=== PATIENT | female | born 1980 | race Caucasian/White ===

== ENCOUNTER 2016-09-07 17:47 | Emergency (ER) | payer MEDICAID, OTHER, SELFPAY ==
[~2016-09-07] VITALS: Ht 152.4 cm; Wt 54.4 kg
[2016-09-07] MEDS ORDERED: KETOROLAC 30 MG/ML VIAL (J1885) IV ONE (19:45)
[2016-09-07] MEDS ORDERED: ONDANSETRON 4MG/2ML VIAL (J2405) IV ONE (19:45)
[2016-09-07] MEDS ORDERED: NS 1,000 ML IV ONE (20:00)
[2016-09-07 20:22] LABS: BASO % 0.7 % (0.0-1.0); EOS % 0.6 % (0.0-3.0); LARGE UNSTAINED CELL # 0.1 K/mm3 (0.0-0.4); LARGE UNSTAINED CELL % 2.5 % (0.0-4.0); LYMPH # 1.9 K/mm3 (1.5-4.5); LYMPH % 31.9 % (24.0-44.0); MEAN CORPUSCULAR HEMOGLOBIN 23.8 pg (27.0-33.0); MEAN CORPUSCULAR HGB CONC 31.4 g/dl (32.0-36.5); MEAN CORPUSCULAR VOLUME 75.6 fl (80.0-96.0); MONO # 0.4 K/mm3 (0.0-0.8); MONO % 6.6 % (0.0-5.0); NEUTROPHILS # 3.1 K/mm3 (1.8-7.7); NEUTROPHILS % 57.8 % (36.0-66.0); PLATELET COUNT, AUTOMATED 199 k/mm3 (150-450); RED CELL DISTRIBUTION WIDTH 15.3 % (11.5-14.5); WHITE BLOOD COUNT 5.4 K/mm3 (4.0-10.0)
[2016-09-07 20:24] LABS: ANION GAP 6 MEQ/L (8-16); BLOOD UREA NITROGEN 11 MG/DL (7-18); CALCIUM LEVEL 9.4 MG/DL (8.5-10.1); CARBON DIOXIDE LEVEL 28 MEQ/L (21-32); CHLORIDE LEVEL 106 MEQ/L (98-107); CREATININE FOR GFR 0.65 MG/DL (0.55-1.02); GLOMERULAR FILTRATION RATE > 60.0 (>60); GLUCOSE, FASTING 79 MG/DL (70-105); POTASSIUM SERUM 4.4 MEQ/L (3.5-5.1); SODIUM LEVEL 140 MEQ/L (136-145)
--- NOTE | 2016-09-07 20:50 | REPUSA ---
Clinical history: pain. Comparison: CT examination of 11/01/2015. Findings: The urinary bladder is contracted but appears unremarkable. The left kidney measures 10.5 x 3.6 x 4.0. The right kidney measures 10.1 x 4.7 x 4.4 cm. The kidneys demonstrate normal echotextur e and echogenicity. There is a complex, hypoechoic lesion in the mid-left kidney measuring 1.2 x 1.2 x 1.3 cm. There is no evidence of hydronephrosis or nephrolithiasis. No renal masses are seen. No elmira e fluid is appreciated. Impression: Complex, hypoechoic lesion in the central left kidney.. This could represent a complex cy st. However, full characterization could not be performed on this study. This lesion was not identifi ed on the prior CT of 2015. Repeat CT examination is recommended.
[2016-09-07] MEDS ORDERED: ROBA500T PO (21:39)
[2016-09-07] MEDS ORDERED: METHOCARBAMOL 750 MG TAB PO ONE (21:45)
[2016-09-07 21:49] VITALS: BP 130/81
--- NOTE | 2016-09-09 09:31 | ED PDOC ---
Post-Departure Follow-Up dr mesa faxed formal report of renal us for fu Kelli Thompson MD September 09, 2016 09:31
== END 2016-09-07 22:14 | disposition home or self-care (01) ==
LOC: M ED 19:00
DX: N28.1 Cyst of kidney, acquired (principal); M54.9 Dorsalgia, unspecified; N39.0 Urinary tract infection, site not specified; R11.0 Nausea; D64.9 Anemia, unspecified; Z87.42 Personal history of other diseases of the female genital tract; F17.210 Nicotine dependence, cigarettes, uncomplicated; Z87.442 Personal history of urinary calculi; Z88.8 Allergy status to other drugs, medicaments and biological substances; Z88.5 Allergy status to narcotic agent
CPT/HCPCS: 76775; 80048; 81001; 85025; 87088; 87186; 96374; 96375; 99283; J1885; J2405

== ENCOUNTER 2016-12-23 15:00 | Emergency (ER) | payer MEDICAID, OTHER ==
[~2016-12-23] VITALS: Ht 152.4 cm; Wt 56.8 kg
[~2016-12-23 15:00] MED LIST: ROBA500T PO
[2016-12-23] MEDS ORDERED: TYLE325T5 PO (15:08)
[2016-12-23] MEDS ORDERED: NS 1,000 ML IV ONE (16:00)
[2016-12-23] MEDS ORDERED: ONDANSETRON 4MG/2ML VIAL (J2405) IV ONE (16:00)
[2016-12-23] MEDS: HYDROmorphone HCL 1 MG/ML SYRINGE (J1170) IV PRN ×2 (16:19→17:09)
[2016-12-23 16:43] LABS: BASO % 0.1 % (0.0-1.0); EOS % 0.2 % (0.0-3.0); LARGE UNSTAINED CELL # 0.1 K/mm3 (0.0-0.4); LARGE UNSTAINED CELL % 0.8 % (0.0-4.0); LYMPH % 6.1 % (24.0-44.0); MEAN CORPUSCULAR HEMOGLOBIN 24.3 pg (27.0-33.0); MEAN CORPUSCULAR HGB CONC 31.7 g/dl (32.0-36.5); MEAN CORPUSCULAR VOLUME 76.6 fl (80.0-96.0); MONO # 0.9 K/mm3 (0.0-0.8); MONO % 5.7 % (0.0-5.0); NEUTROPHILS # 13.9 K/mm3 (1.8-7.7); NEUTROPHILS % 87.1 % (36.0-66.0); PLATELET COUNT, AUTOMATED 202 k/mm3 (150-450)
[2016-12-23 16:57] LABS: ANION GAP 7 MEQ/L (8-16); BLOOD UREA NITROGEN 14 MG/DL (7-18); CALCIUM LEVEL 8.9 MG/DL (8.5-10.1); CARBON DIOXIDE LEVEL 28 MEQ/L (21-32); CHLORIDE LEVEL 104 MEQ/L (98-107); CREATININE FOR GFR 0.79 MG/DL (0.55-1.02); GLOMERULAR FILTRATION RATE > 60.0 (>60); GLUCOSE, FASTING 88 MG/DL (70-105); POTASSIUM SERUM 4.1 MEQ/L (3.5-5.1); SODIUM LEVEL 139 MEQ/L (136-145)
--- NOTE | 2016-12-23 16:58 | REP ---
Clinical: Right flank pain. Comparison: 11/01/2015. Findings: Mild acute right-sided hydroureteronephrosis with perinephric and proximal periureteral stranding is appreciated. A 1 mm calculus is identified within the right kidney, but no obstructing ureteral calculi are identified. Findings may represent recently passed stone or pyelonephritis and should be correlated clinically. The left kidney suggests small intrarenal calculi without acute findings. The bladder is unremarkable. Liver, spleen, pancreas, gallbladder, and bilateral adrenal glands are normal for noncontrast evaluation. The enteric system is without obstruction or acute inflammatory process. Pelvis demonstrates normal bladder and age-appropriate uterus/adnexa. No ascites. No free air. No obvious adenopathy. Abdominal aorta without aneurysm. Musculoskeletal structures are intact. Impression: Mild acute right-sided hydroureteronephrosis with perinephric and proximal periureteral stranding. No obstructing calculus. DDx includes recently passed stone and pyelonephritis. Signed by Evaristo Ge MD 12/23/2016 04:49 P
[2016-12-23] MEDS ORDERED: CIPROFLOXACIN 400 MG in APPROPRIATE DILUENT 1 EA IV ONE (17:30)
[2016-12-23] MEDS ORDERED: ACETAMINOPHEN 325 MG TAB PO ONE (17:45)
[2016-12-23] MEDS ORDERED: PERC5TAB12 PO (17:53)
[2016-12-23] MEDS ORDERED: ZOFR4TAB3 PO (17:53)
[2016-12-23] MEDS ORDERED: CIPR-249 PO (17:53)
[2016-12-23] MEDS ORDERED: ONDANSETRON 4MG/2ML VIAL (J2405) IV PRN (18:00)
[2016-12-23] MEDS ORDERED: HYDROmorphone HCL 1 MG/ML SYRINGE (J1170) IV PRN (18:00)
[2016-12-23 19:07] VITALS: BP 111/60
== END 2016-12-23 19:12 | disposition left against medical advice (07) ==
LOC: M ED 15:00
DX: N10 Acute pyelonephritis (principal); N30.91 Cystitis, unspecified with hematuria; N13.39 Other hydronephrosis; R50.9 Fever, unspecified; F17.210 Nicotine dependence, cigarettes, uncomplicated; Z87.442 Personal history of urinary calculi; Z88.5 Allergy status to narcotic agent; Z88.8 Allergy status to other drugs, medicaments and biological substances
CPT/HCPCS: 74176; 80048; 81001; 81025; 83605; 85025; 87040; 87088; 87186; 96365; 96375; 96376; 99284; J0744; J1170; J2405

== ENCOUNTER 2016-12-31 11:19 | Emergency (ER) | payer OTHER ==
[~2016-12-31] VITALS: Ht 152.4 cm; Wt 54.5 kg
[2016-12-31 11:19] VITALS: BP 137/82
[~2016-12-31 11:19] MED LIST changes: +CIPR-249 PO; +PERC5TAB12 PO; +TYLE325T5 PO; +ZOFR4TAB3 PO
== END 2016-12-31 13:58 | disposition left against medical advice (07) ==
LOC: M ED 11:19
DX: R10.9 Unspecified abdominal pain (principal); Z53.21 Procedure and treatment not carried out due to patient leaving prior to being seen by health care provider

== ENCOUNTER → 2017-02-22 | Outpatient (CLI) | payer OTHER ==
[2017-02-22 11:18] LABS: MEAN CORPUSCULAR HEMOGLOBIN 23.4 pg (27.0-33.0); MEAN CORPUSCULAR VOLUME 75.7 fl (80.0-96.0); PLATELET COUNT, AUTOMATED 195 10^3/uL (150-450); RED CELL DISTRIBUTION WIDTH 15.5 % (11.5-14.5); WHITE BLOOD COUNT 3.6 10^3/uL (4.0-10.0)
[2017-02-22 12:02] LABS: ALBUMIN 3.5 GM/DL (3.2-5.2); ALBUMIN/GLOBULIN RATIO 0.85 (1.00-1.93); ALKALINE PHOSPHATASE 71 U/L (45-117); ALT/SGPT 18 U/L (12-78); ANION GAP 5 MEQ/L (8-16); AST/SGOT 16 U/L (7-37); BILIRUBIN,TOTAL 0.6 MG/DL (0.2-1.0); BLOOD UREA NITROGEN 11 MG/DL (7-18); CALCIUM LEVEL 8.8 MG/DL (8.5-10.1); CARBON DIOXIDE LEVEL 28 MEQ/L (21-32); CHLORIDE LEVEL 105 MEQ/L (98-107); CHOLESTEROL LEVEL 107 MG/DL (<200); CREATININE FOR GFR 0.69 MG/DL (0.55-1.02); FREE T4 0.95 NG/DL (0.76-1.46); GLOMERULAR FILTRATION RATE > 60.0 (>60); GLUCOSE, FASTING 78 MG/DL (70-105); POTASSIUM SERUM 4.4 MEQ/L (3.5-5.1); SODIUM LEVEL 138 MEQ/L (136-145); TOTAL PROTEIN 7.6 GM/DL (6.4-8.2); TRIGLYCERIDES LEVEL 98 MG/DL (<150)
== END ==
LOC: M LAB 10:43
PROVIDERS: ATTEND Family Medicine
DX: D64.9 Anemia, unspecified (principal)

== ENCOUNTER → 2017-04-01 | Outpatient (CLI) | payer OTHER ==
[~2017-04-01] MED LIST changes: +ISOVUE-370 76% 100ML VIAL (Q9967) As Ordered ONE
--- NOTE | 2017-04-02 05:59 | REP ---
PRE- AND POST CONTRAST CT OF THE ABDOMEN AND PELVIS USING RENAL STONE PROTOCOL: CLINICAL: History of urinary tract calcifications, possible renal lesion. TECHNIQUE: Axial pre-contrast, contrast enhanced, and delayed images of the abdomen and pelvis using 100 mL Isovue 370 intravenous contrast material with coronal and sagittal reformations. COMPARISON: 12/23/2016, 11/01/2015, 07/01/2015. FINDINGS: Evaluation of the urinary tract system demonstrates small 1-2 mm forming bilateral intrarenal calculi without perinephric stranding, hydroureteronephrosis or obstructing ureteral calculi. Kidneys demonstrate symmetric parenchymal enhancement along with symmetric normal excretion to the collecting system. No renal cystic or mass lesions are identified. No perinephric stranding or hydroureteronephrosis. Liver, spleen, pancreas, gallbladder, and bilateral adrenal glands are normal. The enteric system is without obstruction or acute inflammatory process. Scattered colonic diverticula are suggested without acute diverticulitis. Normal terminal ileum and appendix are identified in the right lower quadrant. Pelvis demonstrates normal bladder and age appropriate uterus/adnexa. No pelvic fluid or ascites. No adenopathy. No obvious mass lesion. Abdominal aorta and vasculature is normal and without aneurysm or dissection. Surrounding musculoskeletal structures are intact and without focal osseous abnormality. IMPRESSION: 1. Few forming 1-2 mm bilateral intrarenal calculi. No further urinary tract pathology is appreciated. 2. Scattered colonic and sigmoid diverticula without acute diverticulitis. 3. No further acute abdominopelvic pathology appreciated. Signed by Evaristo Ge MD 04/03/2017 08:46 A
== END ==
LOC: M RAD 08:14
PROVIDERS: ATTEND Nurse Practitioner Family
DX: N28.9 Disorder of kidney and ureter, unspecified (principal); N20.0 Calculus of kidney
CPT/HCPCS: 74178; Q9967

== ENCOUNTER → 2017-04-22 | Outpatient (REF) | payer OTHER | LOC: M SMT 13:09 | DX: N39.0 Urinary tract infection, site not specified (principal) ==

== ENCOUNTER → 2017-05-10 | Outpatient (REF) | payer OTHER | LOC: M SMT 13:13 | DX: N39.0 Urinary tract infection, site not specified (principal) | CPT/HCPCS: 87086 ==

== ENCOUNTER 2017-05-12 19:29 | Emergency (ER) | payer OTHER ==
[2017-05-12] MEDS: LIDOCAINE 2% MDV 20 ML VIAL SC (20:15)
[2017-05-12] MEDS: ADACEL/BOOSTRIX VACCINE (DIPHTH/PERTUSS/ACELL/TETANUS)0.5ML SYR (90715) IM (20:23)
== END 2017-05-12 21:09 | disposition home or self-care (01) ==
LOC: M ED 19:29
DX: S61.210A Laceration without foreign body of right index finger without damage to nail, initial encounter (principal); F17.210 Nicotine dependence, cigarettes, uncomplicated; W26.0XXA Contact with knife, initial encounter; Y92.89 Other specified places as the place of occurrence of the external cause; Y93.G3 Activity, cooking and baking; Y99.0 Civilian activity done for income or pay
CPT/HCPCS: 90715

== ENCOUNTER 2017-08-23 15:12 | Emergency (ER) | payer OTHER ==
[2017-08-23 15:55] LABS: KETONE, URINE AUTO RFX NEGATIVE (NEGATIVE); LEUKOCYTE ESTERASE UR AUTO RFX NEGATIVE (NEGATIVE); MUCUS, URINE RFX SMALL (NEGATIVE); NITRITE, URINE AUTO RFX NEGATIVE (NEGATIVE); RBC, URINE AUTO RFX 2 /HPF (0-3); SQUAM EPITHELIAL CELL UR AURFX 3 /HPF (0-6); WBC, URINE AUTO RFX 1 /HPF (0-3)
== END 2017-08-23 17:23 | disposition home or self-care (01) ==
LOC: M ED 15:12
DX: R10.9 Unspecified abdominal pain (principal); D64.9 Anemia, unspecified; Z87.442 Personal history of urinary calculi; Z88.5 Allergy status to narcotic agent; Z88.8 Allergy status to other drugs, medicaments and biological substances; F17.210 Nicotine dependence, cigarettes, uncomplicated
CPT/HCPCS: 81001

== ENCOUNTER → 2018-08-09 | Outpatient (REF) | payer OTHER ==
[~2018-08-09] MED LIST changes: +HYDR-3715 PO; -ISOVUE-370 76% 100ML VIAL (Q9967) As Ordered ONE; +NITR100C2; +ZOFR4TAB14 PO; -ZOFR4TAB3 PO
[2018-08-09 15:58] LABS: CHLAMYDIA DNA AMPLIFICATION NEGATIVE (NEGATIVE); GC DNA AMPLIFICATION NEGATIVE (NEGATIVE)
[2018-08-11 14:51] LABS: HPV HYBRID CAPTURE II Negative (Negative)
== END ==
LOC: M LAB REF 13:13
PROVIDERS: ATTEND Advanced Practice Midwife
DX: Z11.3 Encounter for screening for infections with a predominantly sexual mode of transmission (principal)

== ENCOUNTER 2018-11-26 21:28 | Emergency (ER) | payer OTHER ==
[~2018-11-26] VITALS: Ht 152.4 cm; Wt 53.8 kg
[2018-11-26] MEDS ORDERED: diphenhydrAMINE INJ 50MG/ML VIAL (J1200) IV STA (22:41)
[2018-11-26] MEDS ORDERED: METOCLOPRAMIDE INJ 10MG/2ML VIAL (J2765) IV ONE (22:45)
[2018-11-26] MEDS ORDERED: KETOROLAC 30 MG/ML VIAL (J1885) IV ONE (22:45)
[2018-11-26] MEDS ORDERED: NS 1,000 ML IV ONE (22:45)
[2018-11-26 22:50] LABS: BASO % 0.6 % (0.0-1.0); EOS # 0.1 10^3/uL (0.0-0.50); EOS % 2.7 % (0.0-3.0); HEMATOCRIT 28.7 % (36.0-47.0); LYMPH % 41.5 % (24.0-44.0); MEAN CORPUSCULAR HEMOGLOBIN 23.6 pg (27.0-33.0); MEAN CORPUSCULAR HGB CONC 31.4 g/dl (32.0-36.5); MEAN CORPUSCULAR VOLUME 75.3 fl (80.0-96.0); MONO # 0.5 10^3/uL (0.0-0.8); MONO % 10.8 % (0.0-5.0); NEUTROPHILS # 2.1 10^3/uL (1.8-7.7); NEUTROPHILS % 44.2 % (36.0-66.0); PLATELET COUNT, AUTOMATED 193 10^3/uL (150-450); RED BLOOD COUNT 3.81 10^6/uL (4.00-5.40); WHITE BLOOD COUNT 4.8 10^3/uL (4.0-10.0)
[2018-11-26 23:12] LABS: BLOOD UREA NITROGEN 14 MG/DL (7-18); CALCIUM LEVEL 8.4 MG/DL (8.5-10.1); CARBON DIOXIDE LEVEL 29 MEQ/L (21-32); CHLORIDE LEVEL 108 MEQ/L (98-107); CREATININE FOR GFR 0.82 MG/DL (0.55-1.30); GLOMERULAR FILTRATION RATE > 60.0 (>60); GLUCOSE, FASTING 109 MG/DL (70-100); POTASSIUM SERUM 3.9 MEQ/L (3.5-5.1); SODIUM LEVEL 140 MEQ/L (136-145)
--- NOTE | 2018-11-26 23:17 | REPVR ---
EXAM: CT Head Without Contrast EXAM DATE/TIME: 11/26/2018 10:45 PM CLINICAL HISTORY: 38 years old, female; Pain; Headache not specified; Additional info: New onset STAPLETON occipital TECHNIQUE: Imaging protocol: Computed tomography images of the head without contrast. Radiation optimization: All CT scans at this facility use at least one of these dose optimization techniques: automated exposure control; mA and/or kV adjustment per patient size (includes targeted exams where dose is matched to clinical indication); or iterative reconstruction. COMPARISON: CT Head without contrast 07/11/2014 8:05 PM FINDINGS: Brain: Streak artifact partially limits evaluation of the skull base and posterior fossa. No acute intracranial hemorrhage or mass effect as visualized. No discrete geographic area of hypoattenuation to suggest territorial infarct identified at this time. Ventricles: No ventriculomegaly. Bones/joints: No acute fracture. Sinuses: No fluid levels. Mastoid air cells: No mastoid effusion. Soft tissues: Unremarkable. IMPRESSION: No acute intracranial abnormality as visualized. Electronically signed by: Be Avelar On 11/26/2018 23:17:10 PM
[2018-11-27] MEDS ORDERED: methylPREDNISolone INJ 125 MG/2 ML VIAL (J2930) IV ONE
[2018-11-27] MEDS ORDERED: REGL10TA6 PO (00:56)
[2018-11-27] MEDS ORDERED: FERR325T3 PO (00:56)
[2018-11-27 01:07] VITALS: BP 108/54
[2018-11-27] MEDS ORDERED: IBUP-1729 PO (20:46)
[2018-11-27] MEDS ORDERED: ACET-683 PO (20:46)
[2018-11-28] MEDS ORDERED: AMIT10TA PO (02:04)
== END 2018-11-27 01:26 | disposition home or self-care (01) ==
LOC: M ED 21:28
DX: R51 Headache (principal); Z87.442 Personal history of urinary calculi; Z72.0 Tobacco use; Z79.899 Other long term (current) drug therapy; Z88.6 Allergy status to analgesic agent; Z88.8 Allergy status to other drugs, medicaments and biological substances; Z88.5 Allergy status to narcotic agent
CPT/HCPCS: 70450; 80048; 85025; 96361; 96374; 96375; 99284; J1200; J1885; J2765; J2930

== ENCOUNTER 2018-11-27 20:43 | Emergency (ER) | payer OTHER ==
[~2018-11-27] VITALS: Ht 152.4 cm; Wt 53.6 kg
[~2018-11-27 20:43] MED LIST changes: +FERR325T3 PO; +REGL10TA6 PO
[2018-11-27] MEDS ORDERED: IBUP-1729 PO (20:46)
[2018-11-27] MEDS ORDERED: ACET-683 PO (20:46)
[2018-11-27] MEDS ORDERED: diphenhydrAMINE INJ 50MG/ML VIAL (J1200) IV STA (21:21)
[2018-11-27] MEDS ORDERED: NS 1,000 ML IV ONE (21:30)
[2018-11-27] MEDS ORDERED: METOCLOPRAMIDE INJ 10MG/2ML VIAL (J2765) IV ONE (21:30)
[2018-11-27] MEDS ORDERED: ACETAMINOPHEN 325 MG TAB PO ONE (21:30)
[2018-11-27 21:50] LABS: BASO % 0.1 % (0.0-1.0); HEMATOCRIT 28.9 % (36.0-47.0); LYMPH % 11.6 % (24.0-44.0); MEAN CORPUSCULAR HGB CONC 31.1 g/dl (32.0-36.5); MEAN CORPUSCULAR VOLUME 73.7 fl (80.0-96.0); MONO # 0.6 10^3/uL (0.0-0.8); MONO % 7.5 % (0.0-5.0); NEUTROPHILS # 6.8 10^3/uL (1.8-7.7); NEUTROPHILS % 80.4 % (36.0-66.0); PLATELET COUNT, AUTOMATED 193 10^3/uL (150-450); RED BLOOD COUNT 3.92 10^6/uL (4.00-5.40); WHITE BLOOD COUNT 8.5 10^3/uL (4.0-10.0)
[2018-11-27 22:06] LABS: MAGNESIUM LEVEL 2.3 MG/DL (1.8-2.4)
[2018-11-27] MEDS ORDERED: ISOVUE-370 76% 100ML VIAL (Q9967) As Ordered ONE (22:09)
[2018-11-27 22:51] LABS: CK-MB VALUE MASS < 1.0 NG/ML (<3.6); CPK CREATINE PHOSPHOKINASE 94 U/L (26-192); MB/CK RELATIVE INDEX 1.06 (< OR =4); TROPONIN I < 0.02 NG/ML (< 0.10)
[2018-11-27] MEDS ORDERED: KETOROLAC 30 MG/ML VIAL (J1885) IV ONE (23:15)
--- NOTE | 2018-11-27 23:26 | REPVR ---
EXAM: CT Angiography Neck With Contrast EXAM DATE/TIME: 11/27/2018 10:55 PM CLINICAL HISTORY: 38 years old, female; Pain; Other: Neck; Additional info: Neck pain, intractable headache, dizzy TECHNIQUE: Imaging protocol: Axial computed tomographic angiography images of the neck with intravenous contrast using CT angiography protocol. Coronal and sagittal reformatted images were created and reviewed. 3D rendering: MIP reconstructed images were created and reviewed. Radiation optimization: All CT scans at this facility use at least one of these dose optimization techniques: automated exposure control; mA and/or kV adjustment per patient size (includes targeted exams where dose is matched to clinical indication); or iterative reconstruction. Contrast material: ISOVUE 370;Contrast volume: 100 ml;Contrast route: IV; COMPARISON: CT Spine,cervical w/o contrast 01/13/2014 12:23 PM FINDINGS: VASCULATURE: Right common carotid artery: Unremarkable. No stenosis. No dissection or occlusion. Right internal carotid artery: Normal. Extracranial segment patent with no significant stenosis. No dissection or occlusion. Right external carotid artery: Unremarkable. No occlusion or stenosis of the origin. Right vertebral artery: Unremarkable. No stenosis. No dissection or occlusion. Left common carotid artery: Unremarkable. No stenosis. No dissection or occlusion. Left internal carotid artery: Normal. Extracranial segment patent with no significant stenosis. No dissection or occlusion. Left external carotid artery: Unremarkable. No occlusion or stenosis of the origin. Left vertebral artery: Unremarkable. No stenosis. No dissection or occlusion. NECK: Bones/joints: No acute osseous abnormality. Slight reversal of the normal cervical lordosis. Minimal levoscoliosis. Soft tissues: Unremarkable. IMPRESSION: No acute pathology. COMMENT: Reference per NASCET criteria for degree of stenosis: Mild: less than 50% stenosis. Moderate: 50-69% stenosis. Severe: 70-94% stenosis. Near occlusion: 95-99% stenosis. Electronically signed by: Nino Lui On 11/27/2018 23:25:37 PM
[2018-11-28] MEDS ORDERED: MAG SULF 1GM/100ML (MAG RUN) 1 GM in APPROPRIATE DILUENT 1 EA IV ONE ×2
[2018-11-28] MEDS ORDERED: VALPROATE SOD INJ 1,000 MG in D5W 50 ML IV ONE ×2
[2018-11-28] MEDS ORDERED: AMIT10TA PO (02:04)
[2018-11-28] MEDS ORDERED: ONDANSETRON 4MG/2ML VIAL (J2405) IV ONE (02:30)
[2018-11-28 03:41] VITALS: BP 136/82
--- NOTE | 2018-11-29 10:12 | ECGEPIP ---
[facility] - ED Test Date: 2018-11-27 Pat Name: DOLLY SWANN Department: Room: - Gender: Female Message Clerk: ct : 1980 Requested By: RAY Warren Order Number: [id number] Reading MD: Lizzy Samuel Measurements Intervals [place] Rate: 60 P: 80 ND: 137 QRS: 91 QRSD: 78 T: 66 QT: 400 QTc: 401 Interpretive Statements SINUS RHYTHM WITH MARKED SINUS ARRHYTHMIA BORDERLINE RIGHT AXIS DEVIATION NO PRIOR Electronically Signed on 11-29-2018 10:11:43 EDT by Lizzy Samuel
== END 2018-11-28 03:50 | disposition home or self-care (01) ==
LOC: M ED 20:43
DX: G44.89 Other headache syndrome (principal); Z88.5 Allergy status to narcotic agent; Z88.8 Allergy status to other drugs, medicaments and biological substances; F17.210 Nicotine dependence, cigarettes, uncomplicated
CPT/HCPCS: 36415; 70498; 80047; 82550; 82553; 83735; 84702; 85025; 93005; 96374; 96375; 99284; J1200; J1885; J2405; J2765; J3475; Q9967

== ENCOUNTER → 2019-01-12 | Outpatient (REF) | payer OTHER ==
[~2019-01-12] MED LIST changes: +ACET-683 PO; +AMIT10TA PO; +IBUP-1729 PO
== END ==
LOC: M LAB REF 12:54
PROVIDERS: ATTEND Advanced Practice Midwife
DX: R30.0 Dysuria (principal)

== ENCOUNTER → 2019-10-06 | Outpatient (REF) | payer OTHER, MEDICAID ==
[2019-10-06 12:24] LABS: BASO % 0.4 % (0.0-1.0); EOS # 0.2 10^3/uL (0.0-0.5); EOS % 3.9 % (0.0-3.0); HEMATOCRIT 38.5 % (36.0-47.0); HEMOGLOBIN 12.9 g/dl (12.0-15.5); LYMPH % 41.4 % (24.0-44.0); MEAN CORPUSCULAR HEMOGLOBIN 29.4 pg (27.0-33.0); MEAN CORPUSCULAR HGB CONC 33.5 g/dl (32.0-36.5); MEAN CORPUSCULAR VOLUME 87.7 fl (80.0-96.0); MONO # 0.6 10^3/uL (0.0-0.8); MONO % 11.7 % (0.0-5.0); NEUTROPHILS # 2.1 10^3/uL (1.5-8.5); NEUTROPHILS % 42.4 % (36.0-66.0); PLATELET COUNT, AUTOMATED 190 10^3/uL (150-450); RED BLOOD COUNT 4.39 10^6/uL (4.00-5.40); WHITE BLOOD COUNT 4.9 10^3/uL (4.0-10.0)
[2019-10-06 12:58] LABS: ALBUMIN 3.8 GM/DL (3.2-5.2); ALT/SGPT 25 U/L (12-78); BILIRUBIN,TOTAL 0.7 MG/DL (0.2-1.0); BLOOD UREA NITROGEN 12 MG/DL (7-18); CALCIUM LEVEL 9.3 MG/DL (8.5-10.1); CARBON DIOXIDE LEVEL 28 MEQ/L (21-32); CHLORIDE LEVEL 105 MEQ/L (98-107); CHOLESTEROL LEVEL 118 MG/DL (<200); CHOLESTEROL RISK RATIO 3.105 (<5); CREATININE FOR GFR 0.69 MG/DL (0.55-1.30); FERRITIN 22 NG/ML (8-252); FREE T4 1.24 NG/DL (0.76-1.46); GLOMERULAR FILTRATION RATE > 60.0 (>60); GLUCOSE, FASTING 83 MG/DL (70-100); HDL CHOLESTEROL 38 MG/DL (>40); IRON (FE) 59 UG/DL (50-170); LDL CHOLESTEROL 67 MG/DL (<100); NON-HDL-C 80 MG/DL; POTASSIUM SERUM 4.2 MEQ/L (3.5-5.1); SODIUM LEVEL 136 MEQ/L (136-145); TOTAL 25(OH) VITAMIN D 34.3 NG/ML (30.0-100.0); TOTAL PROTEIN 7.5 GM/DL (6.4-8.2); TRIGLYCERIDES LEVEL 66 MG/DL (<150); VITAMIN B12 LEVEL 1358 PG/ML (247-911)
[2019-10-06 15:02] LABS: HEMOGLOBIN A1c 5.1 %
== END ==
LOC: M LAB REF 11:53
PROVIDERS: ATTEND Physician Assistant
DX: R51 Headache (principal); Z00.00 Encounter for general adult medical examination without abnormal findings; Z91.030 Bee allergy status; Z82.49 Family history of ischemic heart disease and other diseases of the circulatory system; F17.200 Nicotine dependence, unspecified, uncomplicated; Z86.32 Personal history of gestational diabetes; D50.9 Iron deficiency anemia, unspecified; Z68.24 Body mass index [BMI] 24.0-24.9, adult

== ENCOUNTER 2020-01-11 10:19 | Emergency (ER) | payer MEDICAID, OTHER ==
[~2020-01-11] VITALS: Ht 154.9 cm; Wt 57.2 kg
[2020-01-11] MEDS ORDERED: diphenhydrAMINE 50MG/ML VIAL (J1200) IV ONE (11:30)
[2020-01-11] MEDS ORDERED: ACETAMINOPHEN 500 MG TAB PO ONE (11:30)
[2020-01-11] MEDS ORDERED: KETOROLAC 30 MG/ML 1ML VIAL IV ONE (11:30)
[2020-01-11] MEDS ORDERED: METOCLOPRAMIDE INJ 10MG/2ML VIAL (J2765 PER 1) IV ONE (11:30)
[2020-01-11] MEDS ORDERED: NS 1,000 ML IV ONE (11:30)
[2020-01-11 11:59] LABS: BASO % 0.4 % (0.0-1.0); EOS # 0.1 10^3/uL (0.0-0.5); EOS % 2.4 % (0.0-3.0); HEMATOCRIT 36.9 % (36.0-47.0); HEMOGLOBIN 12.4 g/dl (12.0-15.5); LYMPH # 1.2 10^3/uL (1.5-5.0); LYMPH % 21.8 % (24.0-44.0); MEAN CORPUSCULAR HEMOGLOBIN 29.2 pg (27.0-33.0); MEAN CORPUSCULAR HGB CONC 33.6 g/dl (32.0-36.5); MEAN CORPUSCULAR VOLUME 86.8 fl (80.0-96.0); MONO # 0.6 10^3/uL (0.0-0.8); MONO % 10.3 % (0.0-5.0); NEUTROPHILS # 3.5 10^3/uL (1.5-8.5); NEUTROPHILS % 64.7 % (36.0-66.0); PLATELET COUNT, AUTOMATED 180 10^3/uL (150-450); RED BLOOD COUNT 4.25 10^6/uL (4.00-5.40); WHITE BLOOD COUNT 5.4 10^3/uL (4.0-10.0)
[2020-01-11 12:21] LABS: ERYTHROCYTE SEDIMENTATION RATE 46 mm/hr (0-20)
--- NOTE | 2020-01-11 12:31 | REPVR ---
PROCEDURE INFORMATION: Exam: CT Head Without Contrast Exam date and time: 01/11/2020 12:12 PM Age: 39 years old Clinical indication: Pain; Headache; Additional info: Frontal headache x 3 months, constant TECHNIQUE: Imaging protocol: Computed tomography of the head without contrast. Radiation optimization: All CT scans at this facility use at least one of these dose optimization techniques: automated exposure control; mA and/or kV adjustment per patient size (includes targeted exams where dose is matched to clinical indication); or iterative reconstruction. COMPARISON: CT Head without contrast 11/26/2018 10:44 PM FINDINGS: Brain: No acute intracranial hemorrhage, cerebral edema, or midline shift. Cerebral ventricles: No ventriculomegaly. Bones/joints: No acute fracture. Paranasal sinuses: Visualized sinuses are unremarkable. No fluid levels. Mastoid air cells: Visualized mastoid air cells are well aerated. Orbits: The included orbital structures are unremarkable. Soft tissues: Unremarkable. IMPRESSION: No acute intracranial abnormality. Electronically signed by: Maulik Bazan On 01/11/2020 12:30:30 PM
[2020-01-11 12:33] LABS: ALBUMIN 3.3 GM/DL (3.2-5.2); ALT/SGPT 20 U/L (12-78); BILIRUBIN,DIRECT 0.1 MG/DL (0.0-0.2); BILIRUBIN,TOTAL 0.3 MG/DL (0.2-1.0); BLOOD UREA NITROGEN 10 MG/DL (7-18); C REACTIVE PROTEIN QUANTITATIV 2.63 MG/DL (0.00-0.30); CARBON DIOXIDE LEVEL 31 MEQ/L (21-32); CHLORIDE LEVEL 106 MEQ/L (98-107); CREATININE FOR GFR 0.67 MG/DL (0.55-1.30); GLOMERULAR FILTRATION RATE > 60.0 (>60); GLUCOSE, FASTING 91 MG/DL (70-100); POTASSIUM SERUM 3.9 MEQ/L (3.5-5.1); SODIUM LEVEL 138 MEQ/L (136-145); TOTAL PROTEIN 7.6 GM/DL (6.4-8.2)
[2020-01-11 13:47] VITALS: BP 131/59
== END 2020-01-11 13:49 | disposition home or self-care (01) ==
LOC: M ED 10:19
DX: G43.919 Migraine, unspecified, intractable, without status migrainosus (principal); Z88.6 Allergy status to analgesic agent; Z88.5 Allergy status to narcotic agent
CPT/HCPCS: 70450; 80048; 80076; 85025; 85652; 86140; 96361; 96374; 96375; 99284; J1200; J1885; J2765

== ENCOUNTER → 2020-02-23 | Outpatient (CLI) | payer OTHER | LOC: M PLARAD 08:21 | PROVIDERS: ATTEND Psychiatry & Neurology Neurology | DX: G43.809 Other migraine, not intractable, without status migrainosus (principal); M54.2 Cervicalgia; Z53.9 Procedure and treatment not carried out, unspecified reason ==

== ENCOUNTER → 2020-06-10 | Outpatient (REF) | payer OTHER, MEDICAID ==
[~2020-06-10] MED LIST changes: -AMIT10TA PO; +AMIT10TA7 PO
[2020-06-10 13:15] LABS: APPEARANCE, URINE HAZY (CLEAR); BACTERIA, URINE AUTO NEGATIVE (NEGATIVE); BILIRUBIN, URINE AUTO NEGATIVE (NEGATIVE); BLOOD, URINE BLOOD NEGATIVE (NEGATIVE); COLOR, URINE YELLOW (YELLOW); GLUCOSE, URINE (UA) AUTO NEGATIVE (NEGATIVE); KETONE, URINE AUTO NEGATIVE (NEGATIVE); LEUKOCYTE ESTERASE, URINE AUTO NEGATIVE (NEGATIVE); MUCUS, URINE SMALL (NEGATIVE); NITRITE, URINE AUTO NEGATIVE (NEGATIVE); PROTEIN, URINE AUTO NEGATIVE (NEGATIVE); RBC, URINE AUTO 1 /HPF (0-3); SPECIFIC GRAVITY URINE AUTO 1.023 (1.002-1.035); SQUAMOUS EPITHELIAL CELL UR AU 3 /HPF (0-6); WBC, URINE AUTO 2 /HPF (0-3)
== END ==
LOC: M LAB REF 12:07
PROVIDERS: ATTEND Physician Assistant Medical
DX: N39.0 Urinary tract infection, site not specified (principal)

== ENCOUNTER → 2020-10-11 | Outpatient (CLI) | payer OTHER ==
--- NOTE | 2020-10-11 15:25 | REPVR ---
PROCEDURE INFORMATION: Exam: CT Cervical Spine Without Contrast Exam date and time: 10/11/2020 3:03 PM Age: 40 years old Clinical indication: Pain; Cervicalgia TECHNIQUE: Imaging protocol: Computed tomography images of the cervical spine without contrast. Radiation optimization: All CT scans at this facility use at least one of these dose optimization techniques: automated exposure control; mA and/or kV adjustment per patient size (includes targeted exams where dose is matched to clinical indication); or iterative reconstruction. COMPARISON: CT Spine,cervical w/o contrast 01/13/2014 12:23 PM FINDINGS: Vertebrae: No acute fracture. Normal alignment. Straightening of normal cervical lordosis likely secondary to muscular spasm or positioning. C2-C3: No significant disc protrusion. No severe spinal canal stenosis. No significant neural foraminal narrowing. C3-C4: No significant disc protrusion. No severe spinal canal stenosis. Mild right facet joint arthropathy and uncovertebral hypertrophy resulting in mild right neural foraminal narrowing. Left neural foramina is patent. C4-C5: No significant disc protrusion. No severe spinal canal stenosis. No significant neural foraminal narrowing. C5-C6: Central and right paracentral disc protrusion causing mild central spinal canal stenosis. Bilateral neural foramina are patent. C6-C7: Mild diffuse disc bulge causing mild indentation on the thecal sac. Bilateral neural foramina are patent. C7-T1: No significant disc protrusion. No severe spinal canal stenosis. No significant neural foraminal narrowing. Soft tissues: Unremarkable. Lungs: Lung apices are normal. IMPRESSION: No acute findings. Mild disc bulges as described above with mild central spinal canal stenosis and neural foraminal narrowing. If pain persists further evaluation with MR examination is recommended. Electronically signed by: Tete Rojas On 10/11/2020 15:24:59 PM
== END ==
LOC: M RAD 14:43
PROVIDERS: ATTEND Physician Assistant Medical
DX: M54.2 Cervicalgia (principal)

== ENCOUNTER → 2021-01-03 | Outpatient (CLI) | payer OTHER ==
[2021-01-03 11:46] LABS: BASO % 0.4 % (0.0-1.0); EOS # 0.1 10^3/uL (0.0-0.5); EOS % 1.7 % (0.0-3.0); HEMATOCRIT 36.5 % (36.0-47.0); HEMOGLOBIN 12.1 g/dl (12.0-15.5); LYMPH # 1.1 10^3/uL (1.5-5.0); LYMPH % 24.5 % (24.0-44.0); MEAN CORPUSCULAR HEMOGLOBIN 28.3 pg (27.0-33.0); MEAN CORPUSCULAR HGB CONC 33.2 g/dl (32.0-36.5); MEAN CORPUSCULAR VOLUME 85.5 fl (80.0-96.0); MONO # 0.6 10^3/uL (0.0-0.8); MONO % 11.8 % (2.0-8.0); NEUTROPHILS # 2.9 10^3/uL (1.5-8.5); NEUTROPHILS % 61.4 % (36.0-66.0); PLATELET COUNT, AUTOMATED 166 10^3/uL (150-450); RED BLOOD COUNT 4.27 10^6/uL (4.00-5.40); WHITE BLOOD COUNT 4.7 10^3/uL (4.0-10.0)
[2021-01-03 12:28] LABS: ERYTHROCYTE SEDIMENTATION RATE 27 mm/hr (0-20)
[2021-01-04 14:11] LABS: ANTI DOUBLE STRAND-DNA AB <1 IU/mL (0-9); ANTINUCLEAR ANTIBODIES DIRECT Positive (Negative); RNP ANTIBODIES 2.8 AI (0.0-0.9); SJOGREN'S ANTI SS-A >8.0 AI (0.0-0.9); SJOGREN'S ANTI SS-B <0.2 AI (0.0-0.9); SMITH ANTIBODIES 0.2 AI (0.0-0.9)
== END ==
LOC: M LAB 10:53
PROVIDERS: ATTEND Physician Assistant Medical
DX: M25.532 Pain in left wrist (principal); R51.9 Headache, unspecified

== ENCOUNTER → 2021-04-01 | Outpatient (CLI) | payer OTHER | LOC: M PAIN 13:00 | PROVIDERS: ATTEND Nurse Practitioner Family | DX: M54.41 Lumbago with sciatica, right side (principal); G89.29 Other chronic pain; D50.9 Iron deficiency anemia, unspecified; F17.210 Nicotine dependence, cigarettes, uncomplicated; Z88.5 Allergy status to narcotic agent; Z88.6 Allergy status to analgesic agent; Z91.030 Bee allergy status; Z79.899 Other long term (current) drug therapy ==

== ENCOUNTER 2021-08-02 16:29 | Emergency (ER) | payer OTHER ==
[~2021-08-02] VITALS: Ht 152.4 cm; Wt 57.1 kg
[2021-08-02] MEDS ORDERED: ACETAMINOPHEN 325 MG TAB PO ONE (17:05)
[2021-08-02] MEDS ORDERED: diazePAM 10MG/2ML SYRINGE (J3360 PER 5MG) IV ONE (17:05)
[2021-08-02] MEDS ORDERED: NS 1,000 ML IV ONE (17:05)
[2021-08-02] MEDS ORDERED: METOCLOPRAMIDE INJ 10MG/2ML VIAL (J2765 PER 1) IV ONE (17:05)
[2021-08-02 17:36] LABS: BASO % 0.5 % (0.0-1.0); EOS # 0.1 10^3/uL (0.0-0.5); HEMATOCRIT 38.1 % (36.0-47.0); HEMOGLOBIN 12.6 g/dl (12.0-15.5); LYMPH # 1.3 10^3/uL (1.5-5.0); LYMPH % 32.3 % (24.0-44.0); MEAN CORPUSCULAR HGB CONC 33.1 g/dl (32.0-36.5); MEAN CORPUSCULAR VOLUME 87.8 fl (80.0-96.0); MONO # 0.4 10^3/uL (0.0-0.8); MONO % 9.6 % (2.0-8.0); NEUTROPHILS # 2.3 10^3/uL (1.5-8.5); NEUTROPHILS % 55.4 % (36.0-66.0); PLATELET COUNT, AUTOMATED 182 10^3/uL (150-450); RED BLOOD COUNT 4.34 10^6/uL (4.00-5.40); WHITE BLOOD COUNT 4.1 10^3/uL (4.0-10.0)
[2021-08-02] MEDS ORDERED: ISOVUE-370 76% 100ML VIAL As Ordered ONE (18:00)
[2021-08-02 18:56] VITALS: BP 132/61
== END 2021-08-02 18:55 | disposition home or self-care (01) ==
LOC: M ED 16:29
DX: R51.9 Headache, unspecified (principal); S16.1XXA Strain of muscle, fascia and tendon at neck level, initial encounter; X58.XXXA Exposure to other specified factors, initial encounter; Y92.9 Unspecified place or not applicable; Y93.9 Activity, unspecified; Y99.9 Unspecified external cause status; Z87.442 Personal history of urinary calculi; Z87.42 Personal history of other diseases of the female genital tract; F17.200 Nicotine dependence, unspecified, uncomplicated; Z88.6 Allergy status to analgesic agent; Z79.899 Other long term (current) drug therapy
CPT/HCPCS: 70491; 80047; 85025; 96361; 96374; 96375; 99284; J2765; J3360; Q9967

== ENCOUNTER 2021-11-30 18:04 | Emergency (ER) | payer OTHER ==
[~2021-11-30] VITALS: Ht 152.4 cm; Wt 55.1 kg
[2021-11-30 20:45] VITALS: BP 139/72
== END 2021-11-30 20:47 | disposition home or self-care (01) ==
LOC: M ED 18:04
DX: M54.50 Low back pain, unspecified (principal); M25.461 Effusion, right knee; M25.551 Pain in right hip; V49.40XA Driver injured in collision with unspecified motor vehicles in traffic accident, initial encounter; M85.30 Osteitis condensans, unspecified site; Z88.6 Allergy status to analgesic agent; Z79.899 Other long term (current) drug therapy

== ENCOUNTER 2021-12-31 20:57 | Emergency (ER) | payer OTHER ==
[~2021-12-31] VITALS: Ht 152.4 cm; Wt 50.0 kg
[2021-12-31 21:28] LABS: BASO % 0.5 % (0.0-1.0); EOS # 0.1 10^3/uL (0.0-0.5); HEMATOCRIT 36.3 % (36.0-47.0); HEMOGLOBIN 12.1 g/dl (12.0-15.5); LYMPH # 1.9 10^3/uL (1.5-5.0); MEAN CORPUSCULAR HEMOGLOBIN 28.3 pg (27.0-33.0); MEAN CORPUSCULAR HGB CONC 33.3 g/dl (32.0-36.5); MEAN CORPUSCULAR VOLUME 84.8 fl (80.0-96.0); MONO # 0.5 10^3/uL (0.0-0.8); MONO % 11.6 % (2.0-8.0); NEUTROPHILS # 1.9 10^3/uL (1.5-8.5); NEUTROPHILS % 42.7 % (36.0-66.0); PLATELET COUNT, AUTOMATED 187 10^3/uL (150-450); RED BLOOD COUNT 4.28 10^6/uL (4.00-5.40); WHITE BLOOD COUNT 4.4 10^3/uL (4.0-10.0)
[2021-12-31 22:01] LABS: BLOOD UREA NITROGEN 11 MG/DL (7-18); CARBON DIOXIDE LEVEL 28 MEQ/L (21-32); CHLORIDE LEVEL 104 MEQ/L (98-107); CREATININE FOR GFR 0.74 MG/DL (0.55-1.30); GLOMERULAR FILTRATION RATE > 60.0 (>60); GLUCOSE, FASTING 87 MG/DL (70-100); SODIUM LEVEL 136 MEQ/L (136-145)
[2021-12-31 22:09] LABS: CK-MB VALUE MASS < 1.0 NG/ML (<3.6); CPK CREATINE PHOSPHOKINASE 81 U/L (26-192); MB/CK RELATIVE INDEX 1.23 (< OR =4)
[2021-12-31 23:48] LABS: CK-MB VALUE MASS < 1.0 NG/ML (<3.6); CPK CREATINE PHOSPHOKINASE 66 U/L (26-192); MB/CK RELATIVE INDEX 1.52 (< OR =4)
[2022-01-01 00:22] VITALS: BP 112/62
== END 2022-01-01 00:33 | disposition home or self-care (01) ==
LOC: M ED 22:57
DX: R07.9 Chest pain, unspecified (principal); D64.9 Anemia, unspecified; F17.200 Nicotine dependence, unspecified, uncomplicated; Z88.6 Allergy status to analgesic agent; Z88.5 Allergy status to narcotic agent; Z88.8 Allergy status to other drugs, medicaments and biological substances

== ENCOUNTER 2022-05-02 02:57 | Emergency (ER) | payer OTHER ==
[~2022-05-02] VITALS: Ht 152.4 cm; Wt 57.4 kg
[2022-05-02 05:45] VITALS: BP 136/60
== END 2022-05-02 07:46 | disposition home or self-care (01) ==
LOC: M ED 02:57
DX: S60.221A Contusion of right hand, initial encounter (principal); W23.0XXA Caught, crushed, jammed, or pinched between moving objects, initial encounter; Y92.009 Unspecified place in unspecified non-institutional (private) residence as the place of occurrence of the external cause; E11.9 Type 2 diabetes mellitus without complications; D64.9 Anemia, unspecified; F17.200 Nicotine dependence, unspecified, uncomplicated; Z88.5 Allergy status to narcotic agent; Z88.6 Allergy status to analgesic agent

== ENCOUNTER → 2022-06-02 | Outpatient (CLI) | payer OTHER ==
[2022-06-02 12:37] LABS: IRON (FE) 28 UG/DL (50-170); PERCENT SATURATION 8.3 % (13.2-45.0); TOTAL IRON BINDING CAPACITY 339 UG/DL (250-425)
[2022-06-02 12:54] LABS: HEMOGLOBIN A1c 5.3 % (4.0-6.0)
[2022-06-02 12:59] LABS: ALBUMIN 3.5 G/DL (3.2-5.2); ALKALINE PHOSPHATASE 76 U/L (46-116); ALT/SGPT 18 U/L (7.0-40); AST/SGOT 21 U/L (<34); BILIRUBIN,TOTAL 0.6 MG/DL (0.3-1.2); BLOOD UREA NITROGEN 14 MG/DL (9-23); CALCIUM LEVEL 8.6 MG/DL (8.5-10.1); CARBON DIOXIDE LEVEL 29 MMOL/L (20-31); CHLORIDE LEVEL 106 MMOL/L (98-107); CHOLESTEROL LEVEL 101 MG/DL (<200); CHOLESTEROL RISK RATIO 2.56 (<5); CREATININE FOR GFR 0.83 MG/DL (0.55-1.30); FERRITIN 2.8 NG/ML (7.3-270.7); GLOMERULAR FILTRATION RATE > 60.0 (>58); GLUCOSE, FASTING 85 MG/DL (60-100); HDL CHOLESTEROL 39.3 MG/DL (>40); NON-HDL-C 62 MG/DL; POTASSIUM SERUM 4.2 MMOL/L (3.5-5.1); SODIUM LEVEL 139 MMOL/L (136-145); THYROID STIMULATING HORMONE 0.938 uIU/ML (0.55-4.78)
[2022-06-02 15:07] LABS: HIV 1&2 SCREEN CENTAUR NEGATIVE (NEGATIVE)
[2022-06-02 15:22] LABS: LDL CHOLESTEROL 43.9 MG/DL (<100); TRIGLYCERIDES LEVEL 89 MG/DL (<150)
== END ==
LOC: M LAB 11:22
PROVIDERS: ATTEND Nurse Practitioner Family
DX: Z13.228 Encounter for screening for other metabolic disorders (principal); Z11.9 Encounter for screening for infectious and parasitic diseases, unspecified; D50.9 Iron deficiency anemia, unspecified

== ENCOUNTER → 2022-06-10 | Outpatient (REF) | payer OTHER ==
[2022-06-10 17:22] LABS: BASO % 0.5 % (0.0-1.0); EOS # 0.1 10^3/uL (0.0-0.5); EOS % 1.2 % (0.0-3.0); HEMATOCRIT 36.6 % (36.0-47.0); HEMOGLOBIN 11.5 g/dl (12.0-15.5); LYMPH # 1.8 10^3/uL (1.5-5.0); LYMPH % 30.9 % (24.0-44.0); MEAN CORPUSCULAR HEMOGLOBIN 25.5 pg (27.0-33.0); MEAN CORPUSCULAR HGB CONC 31.4 g/dl (32.0-36.5); MEAN CORPUSCULAR VOLUME 81.2 fl (80.0-96.0); MONO # 0.7 10^3/uL (0.0-0.8); MONO % 11.1 % (2.0-8.0); NEUTROPHILS # 3.3 10^3/uL (1.5-8.5); PLATELET COUNT, AUTOMATED 203 10^3/uL (150-450); RED BLOOD COUNT 4.51 10^6/uL (4.00-5.40)
== END ==
LOC: M LAB REF 16:22
PROVIDERS: ATTEND Nurse Practitioner Family
DX: D50.9 Iron deficiency anemia, unspecified (principal)

== ENCOUNTER 2022-08-04 00:03 | Emergency (ER) | payer OTHER ==
[~2022-08-04] VITALS: Ht 152.4 cm; Wt 58.1 kg
[~2022-08-04 00:03] MED LIST changes: +ERGO500029
[2022-08-04 00:04] VITALS: BP 122/64
== END 2022-08-04 02:03 | disposition left against medical advice (07) ==
LOC: M ED 00:03
DX: R06.2 Wheezing (principal); Z53.21 Procedure and treatment not carried out due to patient leaving prior to being seen by health care provider

== ENCOUNTER 2022-08-09 16:22 | Emergency (ER) | payer OTHER ==
[~2022-08-09] VITALS: Ht 152.4 cm; Wt 56.8 kg
[2022-08-09] MEDS ORDERED: predniSONE 20 MG TAB PO ONE (17:20)
[2022-08-09] MEDS ORDERED: methocarbamoL 500 MG TAB PO ONE (17:20)
[2022-08-09 18:58] LABS: BASO % 0.6 % (0.0-1.0); EOS # 0.1 10^3/uL (0.0-0.5); EOS % 1.3 % (0.0-3.0); HEMOGLOBIN 11.4 g/dl (12.0-15.5); LYMPH # 1.9 10^3/uL (1.5-5.0); LYMPH % 36.9 % (24.0-44.0); MEAN CORPUSCULAR HEMOGLOBIN 25.2 pg (27.0-33.0); MEAN CORPUSCULAR HGB CONC 31.7 g/dl (32.0-36.5); MEAN CORPUSCULAR VOLUME 79.5 fl (80.0-96.0); MONO # 0.4 10^3/uL (0.0-0.8); MONO % 7.9 % (2.0-8.0); NEUTROPHILS # 2.8 10^3/uL (1.5-8.5); NEUTROPHILS % 53.1 % (36.0-66.0); PLATELET COUNT, AUTOMATED 190 10^3/uL (150-450); RED BLOOD COUNT 4.53 10^6/uL (4.00-5.40); WHITE BLOOD COUNT 5.2 10^3/uL (4.0-10.0)
[2022-08-09] MEDS ORDERED: METH-1164 PO (19:35)
[2022-08-09] MEDS ORDERED: PRED20TA PO (19:35)
[2022-08-09 19:45] VITALS: BP 151/79
== END 2022-08-09 19:46 | disposition home or self-care (01) ==
LOC: M ED 16:22
DX: S29.012A Strain of muscle and tendon of back wall of thorax, initial encounter (principal); X58.XXXA Exposure to other specified factors, initial encounter; Y92.89 Other specified places as the place of occurrence of the external cause; Y93.89 Activity, other specified; Y99.8 Other external cause status; E11.9 Type 2 diabetes mellitus without complications; R51.9 Headache, unspecified; Z87.442 Personal history of urinary calculi; D64.9 Anemia, unspecified; N83.209 Unspecified ovarian cyst, unspecified side; F17.200 Nicotine dependence, unspecified, uncomplicated; Z88.6 Allergy status to analgesic agent; Z88.5 Allergy status to narcotic agent; Z79.899 Other long term (current) drug therapy
CPT/HCPCS: 36415; 71046; 72072; 80047; 85025; 85379; 93005; 99284; J7512

== ENCOUNTER 2022-08-18 21:46 | Emergency (ER) | payer OTHER ==
[~2022-08-18] VITALS: Ht 152.4 cm; Wt 55.9 kg
[~2022-08-18 21:46] MED LIST changes: +METH-1164 PO; +PRED20TA PO
[2022-08-18 21:47] VITALS: BP 152/82
== END 2022-08-18 23:41 | disposition home or self-care (01) ==
LOC: M ED 21:46
DX: K21.9 Gastro-esophageal reflux disease without esophagitis (principal); Z53.21 Procedure and treatment not carried out due to patient leaving prior to being seen by health care provider

== ENCOUNTER 2022-08-21 10:49 | Emergency (ER) | payer OTHER ==
[~2022-08-21] VITALS: Ht 152.4 cm; Wt 56.1 kg
[2022-08-21 12:51] LABS: BASO % 0.6 % (0.0-1.0); EOS # 0.1 10^3/uL (0.0-0.5); EOS % 1.8 % (0.0-3.0); HEMATOCRIT 38.7 % (36.0-47.0); HEMOGLOBIN 12.4 g/dl (12.0-15.5); LYMPH % 20.2 % (24.0-44.0); MEAN CORPUSCULAR HEMOGLOBIN 26.1 pg (27.0-33.0); MEAN CORPUSCULAR VOLUME 81.3 fl (80.0-96.0); MONO # 0.6 10^3/uL (0.0-0.8); NEUTROPHILS # 3.3 10^3/uL (1.5-8.5); NEUTROPHILS % 65.2 % (36.0-66.0); PLATELET COUNT, AUTOMATED 193 10^3/uL (150-450); RED BLOOD COUNT 4.76 10^6/uL (4.00-5.40); WHITE BLOOD COUNT 5.1 10^3/uL (4.0-10.0)
[2022-08-21] MEDS ORDERED: ISOVUE-370 76% 100ML VIAL As Ordered ONE (13:03)
[2022-08-21 13:25] LABS: FREE T4 1.26 NG/DL (0.89-1.76); THYROID STIMULATING HORMONE 0.496 uIU/ML (0.55-4.78)
[2022-08-21 13:44] VITALS: BP 117/57
[2022-08-26] MEDS ORDERED: PROC10TA5 PO (15:26)
== END 2022-08-21 14:00 | disposition home or self-care (01) ==
LOC: M ED 10:49
DX: R13.10 Dysphagia, unspecified (principal); K21.9 Gastro-esophageal reflux disease without esophagitis; Z79.899 Other long term (current) drug therapy; Z79.52 Long term (current) use of systemic steroids; Z88.5 Allergy status to narcotic agent; Z88.6 Allergy status to analgesic agent
CPT/HCPCS: 36415; 70491; 80047; 84439; 84443; 84702; 85025; 87880; 99283; Q9967

== ENCOUNTER 2022-09-28 14:17 | Emergency (ER) | payer OTHER ==
[~2022-09-28] VITALS: Ht 152.4 cm; Wt 56.8 kg
[~2022-09-28 14:17] MED LIST changes: +FAMO40TA3; +OMEP40CA5; +PROC10TA5 PO; +VITA500C24 PO
[2022-09-28 14:18] VITALS: BP 167/72; TEMP 97.6; O2SAT 100
== END 2022-09-28 21:00 | disposition left against medical advice (07) ==
LOC: M ED 14:17
DX: R10.9 Unspecified abdominal pain (principal); Z53.21 Procedure and treatment not carried out due to patient leaving prior to being seen by health care provider

== ENCOUNTER 2022-09-30 20:08 | Emergency (ER) | payer OTHER ==
[~2022-09-30] VITALS: Ht 152.4 cm; Wt 56.3 kg
[2022-09-30 20:09] VITALS: BP 140/80; TEMP 97.9; O2SAT 100
[2022-09-30 20:53] LABS: BASO % 0.4 % (0.0-1.0); EOS # 0.1 10^3/uL (0.0-0.5); EOS % 2.9 % (0.0-3.0); HEMATOCRIT 40.3 % (36.0-47.0); HEMOGLOBIN 13.1 g/dl (12.0-15.5); LYMPH % 40.8 % (24.0-44.0); MEAN CORPUSCULAR HEMOGLOBIN 27.6 pg (27.0-33.0); MEAN CORPUSCULAR HGB CONC 32.5 g/dl (32.0-36.5); MEAN CORPUSCULAR VOLUME 84.8 fl (80.0-96.0); MONO # 0.5 10^3/uL (0.0-0.8); NEUTROPHILS # 2.2 10^3/uL (1.5-8.5); NEUTROPHILS % 44.7 % (36.0-66.0); PLATELET COUNT, AUTOMATED 172 10^3/uL (150-450); RED BLOOD COUNT 4.75 10^6/uL (4.00-5.40); WHITE BLOOD COUNT 4.8 10^3/uL (4.0-10.0)
[2022-09-30 21:16] LABS: LIPASE 35 U/L (12-53)
[2022-09-30 21:19] LABS: ALBUMIN 3.8 G/DL (3.2-5.2); ALKALINE PHOSPHATASE 63 U/L (46-116); ALT/SGPT 21 U/L (7.0-40); AST/SGOT 17 U/L (<34); BILIRUBIN,DIRECT 0.2 MG/DL (<0.4); BILIRUBIN,TOTAL 0.4 MG/DL (0.3-1.2); BLOOD UREA NITROGEN 14 MG/DL (9-23); CALCIUM LEVEL 8.7 MG/DL (8.5-10.1); CARBON DIOXIDE LEVEL 29 MMOL/L (20-31); CHLORIDE LEVEL 105 MMOL/L (98-107); CREATININE FOR GFR 0.76 MG/DL (0.55-1.30); GLOMERULAR FILTRATION RATE > 60.0 (>58); GLUCOSE, FASTING 111 MG/DL (60-100); POTASSIUM SERUM 4.1 MMOL/L (3.5-5.1); SODIUM LEVEL 139 MMOL/L (136-145); TOTAL PROTEIN 6.9 G/DL (5.7-8.2)
[2022-09-30] MEDS ORDERED: KETOROLAC 30 MG/ML 1ML VIAL IV ONE (23:25)
[2022-10-01] MEDS ORDERED: ISOVUE-370 76% 100ML VIAL As Ordered ONE (00:01)
[2022-10-01] MEDS ORDERED: HYDR-3713 PO (02:14)
== END 2022-10-01 02:37 | disposition home or self-care (01) ==
LOC: M ED 20:08
DX: R10.30 Lower abdominal pain, unspecified (principal); N83.209 Unspecified ovarian cyst, unspecified side; R51.9 Headache, unspecified; Z87.442 Personal history of urinary calculi; Z86.32 Personal history of gestational diabetes; F17.200 Nicotine dependence, unspecified, uncomplicated; Z88.5 Allergy status to narcotic agent; Z88.6 Allergy status to analgesic agent; Z79.899 Other long term (current) drug therapy
CPT/HCPCS: 36415; 74177; 80048; 80076; 83690; 85025; 96374; 99284; J1885; Q9967

== ENCOUNTER → 2022-10-07 | Outpatient (REF) | payer OTHER ==
[~2022-10-07] MED LIST changes: +HYDR-3713 PO
== END ==
LOC: M SFHCWAGY 12:56
PROVIDERS: ATTEND Nurse Practitioner Family
DX: R10.2 Pelvic and perineal pain (principal)

== ENCOUNTER → 2022-10-14 | Outpatient (CLI) | payer OTHER | LOC: M WHC 13:42 | PROVIDERS: ATTEND Nurse Practitioner Family | DX: Z12.31 Encounter for screening mammogram for malignant neoplasm of breast (principal) ==

== ENCOUNTER → 2022-10-14 | Outpatient (REF) | payer OTHER | LOC: M SFHCWAGY 15:30 | PROVIDERS: ATTEND Nurse Practitioner Family | DX: Z12.4 Encounter for screening for malignant neoplasm of cervix (principal) ==

== ENCOUNTER → 2022-10-21 | Outpatient (CLI) | payer OTHER | LOC: M RAD 13:22 | PROVIDERS: ATTEND Nurse Practitioner Family | DX: R10.2 Pelvic and perineal pain (principal) ==

== ENCOUNTER → 2022-11-04 | Outpatient (CLI) | payer OTHER | LOC: M WHC 14:07 | PROVIDERS: ATTEND Nurse Practitioner Family | DX: Z12.31 Encounter for screening mammogram for malignant neoplasm of breast (principal) ==

== ENCOUNTER → 2022-12-31 | Outpatient (REF) | payer OTHER | LOC: M LAB REF 11:39 | PROVIDERS: ATTEND Nurse Practitioner Family | DX: J02.9 Acute pharyngitis, unspecified (principal) ==

== ENCOUNTER 2023-07-03 17:43 | Emergency (ER) | payer OTHER ==
[~2023-07-03] VITALS: Ht 152.4 cm; Wt 60.5 kg
[~2023-07-03 17:43] MED LIST changes: +EPIP0.3I2; +ERGO500029 PO; +FAMO40TA3 PO; +vitamin D2 PO
[2023-07-03 18:51] LABS: BASO % 0.4 % (0.0-1.0); EOS # 0.2 10^3/uL (0.0-0.5); EOS % 3.3 % (0.0-3.0); HEMATOCRIT 39.3 % (36.0-47.0); HEMOGLOBIN 13.3 g/dl (12.0-15.5); LYMPH # 1.7 10^3/uL (1.5-5.0); LYMPH % 35.2 % (24.0-44.0); MEAN CORPUSCULAR HEMOGLOBIN 29.3 pg (27.0-33.0); MEAN CORPUSCULAR HGB CONC 33.8 g/dl (32.0-36.5); MEAN CORPUSCULAR VOLUME 86.6 fl (80.0-96.0); MONO # 0.5 10^3/uL (0.0-0.8); MONO % 9.5 % (2.0-8.0); NEUTROPHILS # 2.5 10^3/uL (1.5-8.5); NEUTROPHILS % 51.6 % (36.0-66.0); PLATELET COUNT, AUTOMATED 185 10^3/uL (150-450); RED BLOOD COUNT 4.54 10^6/uL (4.00-5.40); WHITE BLOOD COUNT 4.9 10^3/uL (4.0-10.0)
[2023-07-03 19:09] LABS: BLOOD UREA NITROGEN 14 MG/DL (9-23); CALCIUM LEVEL 9.4 MG/DL (8.5-10.1); CARBON DIOXIDE LEVEL 32 MMOL/L (20-31); CHLORIDE LEVEL 104 MMOL/L (98-107); CREATININE FOR GFR 0.64 MG/DL (0.55-1.30); GLOMERULAR FILTRATION RATE > 60.0 (>58); GLUCOSE, FASTING 97 MG/DL (60-100); POTASSIUM SERUM 3.6 MMOL/L (3.5-5.1); SODIUM LEVEL 137 MMOL/L (136-145)
[2023-07-03] MEDS: NS 1,000 ML IV ONE (19:25)
[2023-07-03] MEDS: METOCLOPRAMIDE INJ 10MG/2ML VIAL IV ONE (19:27)
[2023-07-03] MEDS: KETOROLAC 30 MG/ML 1ML VIAL IV ONE (19:27)
[2023-07-03] MEDS: diphenhydrAMINE 50MG/ML VIAL IV ONE (19:27)
[2023-07-03] MEDS: dexAMETHasone 20MG/5ML VIAL IV ONE (19:28)
[2023-07-03] MEDS: ACETAMINOPHEN *IV* 1,000 MG in IV 1 EA IV ONE (19:38)
[2023-07-03 20:56] VITALS: BP 134/72; TEMP 97.9; O2SAT 100
== END 2023-07-03 21:04 | disposition home or self-care (01) ==
LOC: M ED 17:43
DX: G43.909 Migraine, unspecified, not intractable, without status migrainosus (principal); F41.9 Anxiety disorder, unspecified; F32.A Depression, unspecified; D64.9 Anemia, unspecified; J21.9 Acute bronchiolitis, unspecified; F17.200 Nicotine dependence, unspecified, uncomplicated; Z87.42 Personal history of other diseases of the female genital tract; Z87.442 Personal history of urinary calculi; Z88.5 Allergy status to narcotic agent; Z88.6 Allergy status to analgesic agent; Z79.83 Long term (current) use of bisphosphonates; Z79.02 Long term (current) use of antithrombotics/antiplatelets; Z79.52 Long term (current) use of systemic steroids
CPT/HCPCS: 80048; 84702; 85025; 87486; 87581; 87633; 87798; 96365; 96375; 99283; J0131; J1100; J1200; J1885; J2765

== ENCOUNTER 2023-10-11 20:37 | Emergency (ER) | payer OTHER ==
[~2023-10-11] VITALS: Ht 152.4 cm; Wt 60.9 kg
[2023-10-11 20:37] VITALS: BP 141/67; TEMP 97.9; O2SAT 100
== END 2023-10-11 21:43 | disposition left against medical advice (07) ==
LOC: M ED 20:37
DX: Z53.21 Procedure and treatment not carried out due to patient leaving prior to being seen by health care provider (principal)

== ENCOUNTER → 2023-10-12 | Outpatient (REF) | payer OTHER | LOC: M LAB REF 12:09 | PROVIDERS: ATTEND Nurse Practitioner Family | DX: J02.9 Acute pharyngitis, unspecified (principal) ==

== ENCOUNTER 2023-11-20 21:14 | Emergency (ER) | payer OTHER ==
[~2023-11-20] VITALS: Ht 152.4 cm; Wt 59.7 kg
[2023-11-20 22:01] LABS: BASO % 0.4 % (0.0-1.0); EOS # 0.2 10^3/uL (0.0-0.5); HEMATOCRIT 38.3 % (36.0-47.0); HEMOGLOBIN 13.3 g/dl (12.0-15.5); LYMPH % 40.8 % (24.0-44.0); MEAN CORPUSCULAR HEMOGLOBIN 29.8 pg (27.0-33.0); MEAN CORPUSCULAR HGB CONC 34.7 g/dl (32.0-36.5); MEAN CORPUSCULAR VOLUME 85.7 fl (80.0-96.0); MONO # 0.5 10^3/uL (0.0-0.8); MONO % 10.4 % (2.0-8.0); NEUTROPHILS # 2.3 10^3/uL (1.5-8.5); NEUTROPHILS % 45.2 % (36.0-66.0); PLATELET COUNT, AUTOMATED 178 10^3/uL (150-450); RED BLOOD COUNT 4.47 10^6/uL (4.00-5.40)
[2023-11-20 22:33] LABS: LIPASE 32 U/L (12-53)
[2023-11-20 22:35] LABS: ALBUMIN 3.9 G/DL (3.2-5.2); ALKALINE PHOSPHATASE 77 U/L (46-116); ALT/SGPT 23 U/L (7.0-40); AST/SGOT 24 U/L (<34); BILIRUBIN,DIRECT 0.1 MG/DL (<0.4); BILIRUBIN,TOTAL 0.4 MG/DL (0.3-1.2); BLOOD UREA NITROGEN 15 MG/DL (9-23); CALCIUM LEVEL 9.1 MG/DL (8.5-10.1); CARBON DIOXIDE LEVEL 29 MMOL/L (20-31); CHLORIDE LEVEL 105 MMOL/L (98-107); CREATININE FOR GFR 0.89 MG/DL (0.55-1.30); GLOMERULAR FILTRATION RATE > 60.0 (>58); GLUCOSE, FASTING 124 MG/DL (60-100); POTASSIUM SERUM 4.7 MMOL/L (3.5-5.1); SODIUM LEVEL 137 MMOL/L (136-145); TOTAL PROTEIN 7.3 G/DL (5.7-8.2)
[2023-11-20 22:50] LABS: HCG, SERUM QUALITATIVE NEGATIVE (NEGATIVE)
[2023-11-21] MEDS: ACETAMINOPHEN *IV* 1,000 MG in IV 1 EA IV ONE (01:00)
[2023-11-21] MEDS ORDERED: ISOVUE-370 76% 100ML VIAL As Ordered ONE (01:14)
[2023-11-21] MEDS ORDERED: COLA100C5 PO (02:32)
[2023-11-21] MEDS: MAGNESIUM CITRATE 300ML BTL PO ONE (02:40)
[2023-11-21 02:43] VITALS: BP 141/71; TEMP 98; O2SAT 98
== END 2023-11-21 02:47 | disposition home or self-care (01) ==
LOC: M ED 21:14
DX: K59.00 Constipation, unspecified (principal); K21.9 Gastro-esophageal reflux disease without esophagitis; D50.9 Iron deficiency anemia, unspecified; F17.200 Nicotine dependence, unspecified, uncomplicated; Z88.5 Allergy status to narcotic agent; Z88.6 Allergy status to analgesic agent; Z79.899 Other long term (current) drug therapy
CPT/HCPCS: 74177; 80048; 80076; 81001; 83690; 84703; 85025; 93041; 96365; 99284; J0131; Q9967

== ENCOUNTER 2024-10-15 22:12 | Emergency (ER) | payer OTHER ==
[~2024-10-15] VITALS: Ht 152.4 cm; Wt 59.1 kg
[~2024-10-15 22:12] MED LIST changes: +AMIT10TA11 PO; -AMIT10TA7 PO; +COLA100C5 PO
[2024-10-15 23:05] VITALS: TEMP 97.2
[2024-10-16 00:10] LABS: ALT/SGPT 20 U/L (7.0-40); AST/SGOT 23 U/L (<34); CALCIUM LEVEL 9.5 MG/DL (8.5-10.1); CARBON DIOXIDE LEVEL 28 MMOL/L (20-31); CHLORIDE LEVEL 105 MMOL/L (98-107); CREATININE FOR GFR 0.82 MG/DL (0.55-1.30); GLOMERULAR FILTRATION RATE > 90.0 (>58); POTASSIUM SERUM 4.2 MMOL/L (3.5-5.1); SODIUM LEVEL 142 MMOL/L (136-145)
[2024-10-16 00:18] LABS: HCG, SERUM QUALITATIVE NEGATIVE (NEGATIVE)
[2024-10-16 00:20] LABS: BASO # 0.0 10^3/uL (0.0-0.2); BASO % 0.5 % (0.0-1.0); EOS # 0.2 10^3/uL (0.0-0.5); EOS % 2.8 % (0.0-3.0); LYMPH # 2.5 10^3/uL (1.5-5.0); LYMPH % 41.0 % (24.0-44.0); MONO # 0.7 10^3/uL (0.0-0.8); MONO % 10.7 % (2.0-8.0); NEUTROPHILS # 2.7 10^3/uL (1.5-8.5); NEUTROPHILS % 44.7 % (36.0-66.0); PLATELET COUNT, AUTOMATED 197 10^3/uL (150-450)
[2024-10-16] MEDS: ACETAMINOPHEN *IV* 1,000 MG in IV 1 EA IV ONE (00:32)
[2024-10-16] MEDS ORDERED: ISOVUE-370 76% 100 ML VIAL As Ordered ONE (01:01)
[2024-10-16 04:00] VITALS: BP 158/86; O2SAT 98
== END 2024-10-16 04:19 | disposition home or self-care (01) ==
LOC: M ED 22:12
DX: R10.9 Unspecified abdominal pain (principal); K59.00 Constipation, unspecified; F17.200 Nicotine dependence, unspecified, uncomplicated; Z87.42 Personal history of other diseases of the female genital tract; Z79.899 Other long term (current) drug therapy; Z88.6 Allergy status to analgesic agent; Z88.5 Allergy status to narcotic agent
CPT/HCPCS: 74177; 80048; 80076; 83605; 83690; 84703; 85025; 93041; 96365; 99285; J0131; Q9967

== ENCOUNTER → 2024-12-04 | Outpatient (CLI) | payer OTHER | LOC: M PLAIMG 08:47 | PROVIDERS: ATTEND Nurse Practitioner Family | DX: R10.9 Unspecified abdominal pain (principal) ==